=== PATIENT | female | born 1990 | race Caucasian/White ===

== ENCOUNTER 2018-11-16 16:04 | Emergency (ER) | payer OTHER ==
--- NOTE | 2018-11-16 16:49 | EDPHY ---
H & P Time Seen by Provider: 11/16/18 16:13 HPI/ROS: CHIEF COMPLAINT: Right shoulder pain HISTORY OF PRESENT ILLNESS: The patient is a 20-year-old female with a history of DVT and pulmonary embolus in 2017. The patient is taking Eliquis but discontinued it 2-3 weeks ago because she could not afford it. Patient states she has intrinsic and may. The patient complains of right shoulder pain. This is similar to her pain when she had a PE. The patient denies any significant leg pain. No shortness of breath. No cough or fever. REVIEW OF SYSTEMS: 10 systems were reveiwed and are negative with the exception of the elements mentioned in the history of present illness. Past Medical/Surgical History: Includes DVT, PE, fibromyalgia, scoliosis Past surgical history: Includes tonsillectomy, hernia, , appendectomy , cholecystectomy Smoking Status: Former smoker Physical Exam: Vitals noted GENERAL: Well-appearing, in no acute distress, alert. HEENT: Eyes normal to inspection, normal pharynx, no signs of dehydration. NECK: Normal, supple. RESPIRATORY: Clear to auscultation bilaterally, no rales, rhonchi or wheezing. CVS: Regular rate and rhythm, no rubs, murmurs, or gallops. ABDOMEN: Soft, nontender, nondistended, no organomegaly. BACK: Normal to inspection, no CVA tenderness. SKIN: Normal color, no rash, warm, dry. No pallor. EXTREMITIES: No pedal edema, no calf tenderness, no Homans sign or cords, no joint swelling. NEURO/PSYCH: Alert and oriented, normal mood and affect, normal motor sensory exam. Constitutional: Initial Vital Signs Temperature (C) 36.6 C 11/16/18 16:07 Heart Rate 73 11/16/18 16:07 Respiratory Rate 16 11/16/18 16:07 Blood Pressure 114/67 11/16/18 16:07 O2 Sat (%) 97 11/16/18 16:07 O2 Delivery Mode Room Air Allergies/Adverse Reactions: morphine Allergy (Verified 11/16/18 16:07) Medical Decision Making ED Course/Re-evaluation: In the emergency department I discussed possible etiologies with the patient. I answered all her questions. IV was placed. Laboratory studies were obtained. EKG shows normal sinus rhythm, normal rate, normal axis, normal intervals. There are no ST or T-wave abnormalities. EKG is normal as interpreted by me. CBC chemistry unremarkable. Troponin is negative. D-dimer is negative. I discussed the results with the patient. I answered all her questions. Patient is unclear on how long she should be taking Eliquis. She does not state that she has any diagnosis of a clotting disorder. I discussed the case with the are complex case manager. She arrange close follow-up with primary care physician tomorrow. I did not started on Eliquis from the emergency department. Her clot was in 2017. Patient was given warnings prior to leaving. She will return worsening symptoms. Differential Diagnosis: My differential includes but is not limited to pulmonary embolus, pleurisy, pneumonia, bronchitis, ACS - Data Points Laboratory Results: Laboratory Results 11/16/18 16:20 11/16/18 16:20 11/16/18 11/16/18 11/16/18 17:04 16:20 16:20 WBC RBC Hgb Hct MCV MCH MCHC RDW Plt Count MPV Neut % (Auto) Lymph % (Auto) [place] % (Auto) Eos % (Auto) Baso % (Auto) Nucleat RBC Rel Count Absolute Neuts (auto) Absolute Lymphs (auto) Absolute Monos (auto) Absolute Eos (auto) Absolute Basos (auto) Absolute Nucleated RBC Immature Gran % Immature Gran # D-Dimer 0.44 ug/mLFEU ug/mLFEU (0.00-0.50) Sodium Potassium Chloride Carbon Dioxide Anion Gap BUN Creatinine Estimated GFR Glucose Calcium POC Troponin I 0.00 ng/mL ng/mL (0.00-0.08) Beta HCG, Qual NEGATIVE 11/16/18 11/16/18 16:20 16:20 WBC 9.95 10^3/uL H 10^3/uL (3.80-9.50) RBC 4.55 10^6/uL 10^6/uL (4.18-5.33) Hgb 13.7 g/dL g/dL (12.6-16.3) Hct 40.0 % % (38.0-47.0) MCV 87.9 fL fL (81.5-99.8) MCH 30.1 pg pg (27.9-34.1) MCHC 34.3 g/dL g/dL (32.4-36.7) RDW 13.2 % % (11.5-15.2) Plt Count 243 10^3/uL 10^3/uL (150-400) MPV 10.2 fL fL (8.7-11.7) Neut % (Auto) 49.2 % % (39.3-74.2) Lymph % (Auto) 36.6 % % (15.0-45.0) [place] % (Auto) 8.3 % % (4.5-13.0) Eos % (Auto) 4.9 % % (0.6-7.6) Baso % (Auto) 0.8 % % (0.3-1.7) Nucleat RBC Rel Count 0.0 % % (0.0-0.2) Absolute Neuts (auto) 4.89 10^3/uL 10^3/uL (1.70-6.50) Absolute Lymphs (auto) 3.64 10^3/uL H 10^3/uL (1.00-3.00) Absolute Monos (auto) 0.83 10^3/uL H 10^3/uL (0.30-0.80) Absolute Eos (auto) 0.49 10^3/uL H 10^3/uL (0.03-0.40) Absolute Basos (auto) 0.08 10^3/uL 10^3/uL (0.02-0.10) Absolute Nucleated RBC 0.00 10^3/uL 10^3/uL (0-0.01) Immature Gran % 0.2 % % (0.0-1.1) Immature Gran # 0.02 10^3/uL 10^3/uL (0.00-0.10) D-Dimer Sodium 136 mEq/L mEq/L (135-145) Potassium 4.1 mEq/L mEq/L (3.5-5.2) Chloride 107 mEq/L mEq/L (97-110) Carbon Dioxide 21 mEq/l L mEq/l (22-31) Anion Gap 8 mEq/L mEq/L (6-14) BUN 7 mg/dL mg/dL (7-23) Creatinine 0.6 mg/dL mg/dL (0.6-1.0) Estimated GFR > 60 Glucose 100 mg/dL mg/dL (70-100) Calcium 8.6 mg/dL mg/dL (8.5-10.4) POC Troponin I Beta HCG, Qual Point of Care Test Results: Chemistry 11/16/18 17:04 POC Troponin I 0.00 ng/mL ng/mL (0.00-0.08) Departure - Departure Disposition: Home, Routine, Self-Care Clinical Impression: Chest pain Qualifiers: Chest pain type: unspecified Qualified Code(s): R07.9 - Chest pain, unspecified Condition: Fair Instructions: Chest Pain (ED) Additional Instructions: Return with increasing chest pain, shortness of breath, fever, chills or any other concerns. You need close follow-up with her primary care physician. The complex case manager is helping arrange follow-up. Referrals: Chloé Snyder MD [Medical Doctor] - 5-7 days, call for appt. [facility],. [Clinic] - 1-2 days without fail
[2018-11-16 16:54] LABS: PLATELET COUNT 243 10^3/uL (150-400)
[2018-11-16] MEDS ORDERED: ACETAMINOPHEN 500 MG TAB ONE (18:29)
[2018-11-16] MEDS ORDERED: IBUPROFEN 600 MG TAB PO ONE (18:29)
[2018-11-16 18:34] VITALS: BP 135/86
--- NOTE | 2018-11-16 20:25 | CPEKG ---
Test Reason : OPEN Blood Pressure : / mmHG Vent. Rate : 058 BPM Atrial Rate : 058 BPM P-R Int : 169 ms QRS Dur : 092 ms QT Int : 416 ms P-R-T Axes : 046 048 002 degrees QTc Int : 409 ms Sinus rhythm Probable left atrial enlargement Confirmed by Tara Ching ([id number]) on 11/16/2018 8:25:05 PM Referred By: Tara Ching Confirmed By:Tara Ching
--- NOTE | 2018-11-17 10:12 | ASMTCMCOM ---
CM Note CM Note Notes: Late entry: This CM met wit patient in the ED yesterday evening to discuss follow up care. Patient states that she moved to [place] from [place] in September and does not currently have health insurance. Patient tells me that her will have health insurance for them in December. Patient has been taking Eliquis for "almost a year now" and stopped taking it "two weeks ago" because she cannot afford it. When asked, patient states that she does not have a known clotting disorder but believes she is supposed to be taking the Eliquis "onging". She states that her dose was 10 mg per day. I encouraged patient to get established milagros with a PCP in [place] and have provided her with information about the [facility] and the process for a [place] Medicaid application. Given that I met with patient after 5 PM, I told her I would contact her in the morning-confirmed her cell phone number with her -and assist her with getting an ED follow up appointment at [facility]. I have informed her that there would be a $20 co-pay for this appointment and that she would have 30 days to establish insurance, with their assistance as needed. Rosalinda agreed to this plan. This CM has LM with patient this morning to contact CM for follow up and establishment of a PCP. Date Signed: 11/17/2018 10:11 AM Electronically Signed By:Nora Fihser RN
== END 2018-11-16 18:34 | disposition home or self-care (01) ==
DX: R07.9 Chest pain, unspecified (principal); M25.511 Pain in right shoulder; M79.7 Fibromyalgia; Z86.718 Personal history of other venous thrombosis and embolism; Z79.01 Long term (current) use of anticoagulants
CPT/HCPCS: 84484-ER